=== PATIENT | male | born 1970 | race Caucasian/White ===

== ENCOUNTER 2024-06-01 18:53 | Emergency (ER) | payer BC, SELFPAY ==
--- NOTE | ~2024-06-01 | XR_ITS ---
XR hand LT min 3V Ordering provider: Finesse Dent APRN History: . left thumb pain x2 days, no injury . Comparison: None. FINDINGS: BONES: No acute fracture or dislocation. JOINT SPACES: Well maintained. SOFT TISSUES: Unremarkable. IMPRESSION: No acute osseous abnormality left hand. Reviewed, dictated and finalized at location A.
--- OUTSIDE RECORDS SUMMARY | 2024-06-01 19:00 | XMS_ITS | Clinical Summary ---
Author Organization [facility] Address [address] [place] [address] Care Team Providers Care Hand Compositor Name Role Phone Jonas Peacock MD Primary Care Provider [phone] Ashwini Whitaker [facility]- Unavailable [phone] Medications ADVAIR DISKUS 250-50 MCG/DOSE inhaler 01/30/2021 Active montelukast 10 MG tablet 05/16/2021 Active omeprazole 40 MG capsule 11/22/2020 Active Active Problems No known active problems Family History Medical History Relation Comments atrial fibrillation Father Heart Attack Maternal Grandfather Relation Status Comments Father Alive Maternal Grandfather Mother leukemia Social History Tobacco Use Types Packs/Day Years Used Date Smoking Tobacco: Never Smokeless Tobacco: Never Alcohol Use Standard Drinks/Week Comments Yes 0 (1 standard drink = 0.6 oz pur e alcohol) < 10 beers/week Sex and Gender Information Value Date Recorded Sex Assigned at Not on file Legal Sex Male 11:48 PM CDT Gender Identity Male 06/13/2021 8:44 AM CDT Sexual Orientation Not on file 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 Not 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 Not on file Last Filed Vital Signs Vital Sign Reading Time Taken Comments Blood Pressure 124/82 06/14/2021 8:06 AM CDT Pulse 84 06/14/2021 8:06 AM CDT Temperature - - Respiratory Rate 16 06/14/2021 8:06 AM CDT Oxygen Saturation - - Inhaled Oxygen Concentration - - Weight 93 kg (205 lb) 06/14/2021 8:06 AM CDT Height 177.8 cm (5' 10 ) 06/14/2021 8:06 AM CDT Body Mass Index 29.41 06/14/2021 8:06 AM CDT Plan of Treatment Health Maintenance Due Date Last Done Comments Colorectal Cancer Screening Colonoscopy (10 Years) 1969 Annual Physical 1972 Hepatitis C 08/28/1987 DTaP, Tdap and Td Vaccines ( 1 - Tdap) 1988 Pneumococcal Vaccine: 50+ Years (1 of 1 - PCV) 08/28/2019 Zoster Vaccines (1 of 2) 08/28/2019 COVID-19 Vaccine (2 - 2023-2 5 season) 2023 05/27/2020 Hepatitis B Vaccines Completed 10/27/1995, 05/08/1995, 04/04/1995 Meningococcal B Vaccine Aged Out No l onger eligible based on patient's age to complete this topic Meningococcal Vaccine Aged Out No john rosie eligible based on patient's age to complete this topic RSV Immunizations Under 20 Months Aged Out No longer eligible b ased on patient's age to complete this topic Insurance [facility], [facility] Care Teams Hand Compositor Relationship Specialty Start Date End Date Jonas Peacock MD [address] [place], [place] [id number] PCP - General FAMILY PRACTICE 05/28/21 Ashwini Whitaker, ANP- [address] [facility] [address] [place] [address] NURSE PRACTITIONER ADULT HEALTH 05/28/21
--- OUTSIDE RECORDS SUMMARY | 2024-06-01 19:00 | XMS_ITS | Clinical Summary ---
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 Gender Identity Not on file Sexual Orientation Not on file Plan of Treatment Health Maintenance Due Date Last Done Comments Hepatitis C Virus (HCV) Screening 1970 TdaP Immunization 1969 Colonoscopy 2014 Colorectal Cancer Screening 2014 Cologuard 08/28/2019 Immunochemical Fecal Occult Blood 08/28/2019 Pneumococcal Immunization (5 0+ years) (1 of 1 - PCV) 08/28/2019 Zoster Immunization (1 of 2) 08/28/2019 Influenza Immunization (#1) 2023 SARS-COV-2 Immunization (1 - 2023- season) 2023 Respiratory Syncytial Virus (RSV) Immunization (Adult) (1 - 1-dose 75+ series) 2044 Hepatitis B Immunization Completed 996, 05/08/1995, 04/04/1995 Meningococcal Immunization (ACWY) Aged Out No longer eligible b ased on patient's age to complete this topic Pneumococcal Immunization Combined Aged Out No longer eligible b ased on patient's age to complete this topic Rotavirus Immunization Aged Out No lo nger eligible based on patient's age to complete this topic
--- OUTSIDE RECORDS SUMMARY | 2024-06-01 19:00 | XMS_ITS | Encounter Summary ---
Author Organization [facility] Address [address] [place] [address] Care Team Providers Care Lap Regulator Name Role Phone Jonas Peacock MD Primary Care Provider [phone] Ashwini Whitaker-BC Unavailable Encounter Details Date Type Department Care Team ([facility] st Contact Info) Description 06/15/2021 [employer] Message Enc [facility]eld [address] [place] [address] Ashwini Whitaker ANP-BC [address] [facility] [address] [place] [address] Lab results Social History Tobacco Use Types Packs/Day Years [...] 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 No / Unsure 06/14/2021 8:57 AM CDT documented as of this encounter Plan of Treatment Not on file documented as of this encounter Visit Diagnoses Not on filedocumented in this encounter Care Teams Lap Regulator Relationship Specialty Start Date End Date Jonas Peacock MD [address] [place] [address] PCP - General FAMILY PRACTICE 05/28/21 Ashwini Whitaker, ANP- [address] [facility] [address] [place] [address] NURSE PRACTITIONER ADULT HEALTH 05/28/21 documented as of this encounter
--- OUTSIDE RECORDS SUMMARY | 2024-06-01 19:00 | XMS_ITS | Clinical Summary ---
Author Organization [facility] Address [address] [place] [address] Care Team Providers Care Dress Cap Maker Name Role Phone Jonas Peacock MD Primary Care Provider [phone] Allergies No known active allergies Medications fluticasone propion-salmete roL (ADVAIR DISKUS) 250-50 mcg/dose diskus inhalerIndicati ons:Maintenance Therapy for Asthma Inhale 1 puff 2 (two) times a day 05/21/19 20 Active cetirizine (ZyrTEC) 10 mg tablet Take 1 tablet (10 mg total) by mouth daily Active metroNIDAZOLE (METROGEL) 0.75 % gelIndications: Acne Rosacea Apply to face QHS 45 g 2 12/17/19 20 Active propranoloL (INDERAL) 40 mg tablet 07/20/19 21 Active traZODone (DESYREL) 50 mg tablet 08/20/19 21 Active omeprazole (PriLOSEC) 40 mg capsule Take 1 capsule (40 mg total) by mouth daily 90 capsule 3 12/09/19 24 025 Active hydrocortisone (ANUSOL-HC) 25 mg suppository Insert 1 suppository (25 mg total) into the rectum 2 (two) times a day as needed for hemorrhoids Take prior to procedure as directed 12 suppository 3 12/09/19 24 Active Active Problems Problem Noted Date Diagnosed Date Closed nondisplaced fracture of fifth right meta tarsal bone 09/19/2022 LEATHA (obstructive sleep apnea) 09/11/2020 Assessment & Plan (09/11/2020 1:36 PM CDT): The patient has been intolerant of CPAP in the past. His DME is [facility] in [facility]. I will send an order for the new P30i mask and new head gear to his supplier. He will follow up here in 3 months to assess his progress. I did offer a dental consult for consideration of an oral appliance. Hallux rigidus of right foot 07/23/2019 Overview (07/23/2019): Added automatically from request for surgery [id number] Rectal bleeding 03/30/2019 Overview (03/30/2019): Added automatically from request for surgery [id number] Gastroesophageal reflux disease 03/30/2019 Overview (03/30/2019): Added automatically from request for surgery [id number] Surgical History Surgery Date Site/Laterality Comments NASAL FRACTURE SURGERY 01/17/1991 - 02/16/1991 UPPER GASTROINTESTINAL ENDOSCOPY 02/17/2019 - 02/17/2020 COLONOSCOPY 02/17/2019 - 02/17/2020 Medical History Medical History Date Comments Asthma well controlled Sleep apnea can't tolerate c pap Motion sickness Allergic rhinitis GERD (gastroesophageal reflux disease) well controlled Social History Tobacco Use Types Packs/Day Years Used Date Smoking Tobacco: Never Smokeless Tobacco: Never Tobacco Cessation:Counseling Given: Not Answered Alcohol Use Standard Drinks/Week Comments Yes 6 (1 standard drink = 0.6 oz pur e alcohol) Sex and Gender Information Value Date Recorded Sex Assigned at Not on file Legal Sex Male 11:27 AM CDT Gender Identity Not on file Sexual Orientation Not on file Obstetrics History Last Filed Vital Signs Vital Sign Reading Time Taken Comments Blood Pressure 139/88 12/09/2023 10:28 AM CDT Pulse 92 12/09/2023 10:28 AM CDT Temperature 36.3 C (97.4 F) 12/09/2023 10:28 AM CDT Respiratory Rate 18 09/11/2020 12:59 PM CDT Oxygen Saturation 98% 09/11/2020 12:59 PM CDT Inhaled Oxygen Concentration - - Weight 99.3 kg (219 lb) 12/09/2023 10:28 AM CDT Height 177.8 cm (5' 10 ) 12/09/2023 10:28 AM CDT Body Mass Index 31.42 12/09/2023 10:28 AM CDT Plan of Treatment Health Maintenance Due Date Last Done Comments Depression Screening 1969 Hepatitis C Screening 1969 Prostate Cancer Screening-PSA 1969 DTaP/Tdap/Td Vaccine (1 - Tdap) 1980 Regular Well Visit/Exam 18-64 08/28/1987 Zoster Vaccine (1 of 2) 08/28/2019 Influenza Vaccine (Season Ended) 2024 Colon Cancer Screening-Colonoscopy 07/25/2029 07/26/2019 Hepatitis B Screening Completed 10/27/1995 , 05/08/1995, 04/04/1995 Colon Cancer Screening-CT Colonography Discontinued 07/26/2019 Colon Cancer Screening-DNA Stool Discontinued 07/26/2019 Colon Cancer Screening-FIT Discontinued 07/26/2019 Colon Cancer Screening-Sigmoidoscopy Discontinued 07/26/2019 Pneumococcal vaccine <65 Aged Out No longer eligible based on patient's age to complete this topic Procedures Procedure Name Priority Date/Time Associated Diagnosis Comments COLONOSCOPY 07/26/2019 8:31 AM CDT from Last 3 Months or Most Recently Relevant to Health Maintenance Results * COLONOSCOPY (07/26/2019 8:31 AM CDT) Anatomical Region Laterality Modality Other Narrative Procedure Note Soniya Post MD - 07/26/2019 8:31 AM CDT ENDOSCOPY LAB Patient Name: Carlos Maldonado Procedure Date: 07/26/2019 8:31 AM Date of : 1970 Admit Type: Outpatient Age: 48 Gender: Male Attending MD: Soniya Post M.D. Room: [facility] ENDOSCOPY ROOM 01 Note Status: Finalized Procedure: Colonoscopy Indications: Rectal bleeding Providers: Soniya Post M.D. Referring MD: Jonas Peacock MD Medicines: Monitored Anesthesia Care Complications: No immediate complications. Estimated blood loss:Minimal. Estimated Blood Loss: Estimated blood loss was minimal. Procedure: Pre-Anesthesia Assessment: - Immediately prior to administration of medications,the patient was re-assessed for adequacy to receivesedatives. The benefits, risks and alternatives of the procedureand sedation were discussed and informed consent wasobtained. All questions were answered. Please refer to the signed informed consent document in the medical record. Thescope was passed under direct vision. The [id number] introduced through the anus and advanced to theterminal ileum. The colonoscopy was performed withoutdifficulty. The patient tolerated the procedure well. The qualityof the bowel preparation was evaluated using the BBPS([place] Bowel Preparation Scale) with scores of: Right Colon =3, Transverse Colon = 3 and Left Colon = 3 (entire mucosa seen well with no residual staining, small fragments of stool or opaque liquid). The total BBPS score equals9. Findings: The digital rectal exam was normal. The terminal ileum appeared normal. One sessile polyp was found in the descending colon. The polyps was 3mm in size. The polyp was removed with cold biopsy forceps. Resectionand retrieval were complete. Two sessile polyps were found in the sigmoid colon. The polyps were 3mm in size. The polyps were removed with cold biopsy forceps. Resectionand retrieval were complete. Mild diverticulosis was noted in the sigmoid colon. Internal hemorrhoids were found during retroflexion. The hemorrhoids were small. Impression: - The examined portion of the ileum was normal. - One 3 mm polyp in the descending colon, removed witha cold snare. Resected and retrieved. - Two 3 mm polyps in the sigmoid colon. - Internal hemorrhoids. Recommendation: - Follow-up biopsy results. Please call the office ifyou do not receive results in 2 weeks. Timing of repeat colonoscopy to be determined after biopsy review. - High fiber diet - [facility] The signs and symptoms of potential delayedcomplications were discussed with the patient. Return to normal activities tomorrow. Written discharge instructionswere provided to the patient. Electronically by Dr Soniya Post Soniya Post M.D. 07/26/2019 8:56:18 AM Number of Addenda: 0 Note Initiated On: 07/26/2019 8:31 AM Soniya Post MD ENDOSCOPY PROCEDURES Final Result from Last 3 Months or Most Recently Relevant to Health Maintenance Insurance [facility] CHO[facility] PLUS [facility] H[facility]/PPO Address: [address] [address] [place] [address] [facility] H[facility]/PPO Address: [address] [address] [address] Advance Directives For more information, please contact: [phone] * Full Code (Latest Code Status on File) Date Activated Date Inactivated Comments 07/26/2019 7:18 AM 07/26/2019 1:40 PM Care Teams Dress Cap Maker Relationship Specialty Start Date End Date Jonas Peacock MD [address] [place] [address] PCP - General 07/10/17
--- OUTSIDE RECORDS SUMMARY | 2024-06-01 19:00 | XMS_ITS | Encounter Summary ---
Author Organization [facility] Address [address] [place] [address] Care Team Providers Care Clinical Geneticist Name Role Phone Jonas Peacock MD Primary Care Provider [phone] Ashwini Whitaker-BC Unavailable Encounter Details Date Type Department Care Team ([facility] st Contact Info) Description 06/15/2021 [employer] Message Enc [facility] [address] [place] [address] Ashwini Whitaker ANP-BC [address] [facility] [address] [place] [address] Stress Echo Instructions Social History Tobacco Use Types Packs/Day Years [...] Industry Job Start Date Job End Date [employer] business Not on file Not on file [...] on filedocumented in this encounter Care Teams Clinical Geneticist Relationship Specialty Start Date End Date Jonas Peacock MD [address] [place] [address] PCP - General FAMILY PRACTICE 05/28/21 Ashwini Whitaker, ANP- [address] [facility] [address] [place] [address] NURSE PRACTITIONER ADULT HEALTH 05/28/21 documented as of this encounter
--- OUTSIDE RECORDS SUMMARY | 2024-06-01 19:00 | XMS_ITS | Referral Summary ---
Author Organization [facility] Address [address] [place] [address] Care Team Providers Care Foundry Process Engineer Name Role Phone Jonas Peacock MD Primary Care Provider [phone] Allergies No known active allergies Medications fluticasone [...] the past. His DME is [facility] in [facility]. I will send an order for the new P30i mask and new head gear to his supplier. He will follow up here in 3 months to assess his progress. I did offer a dental consult for consideration of an oral appliance. Hallux rigidus of right foot 07/23/2019 Overview (07/23/2019): Added automatically from request for surgery [id number] Rectal bleeding 03/30/2019 Overview (03/30/2019): Added automatically from request for surgery [id number] Gastroesophageal reflux disease 03/30/2019 Overview (03/30/2019): Added automatically from request for surgery [id number] Social History Tobacco Use Types Packs/Day Years [...] on file Sexual Orientation Not on file Last Filed Vital Signs [...] 12/09/2023 10:28 AM CDT Plan of Treatment Not on file Procedures Procedure Name Priority Date/Time Associated Diagnosis [...] Male Attending MD: Soniya Post M.D. Room: [facility] ENDOSCOPY ROOM 01 Note Status: Finalized Procedure: Colonoscopy Indications: Rectal bleeding Providers: Soniya Psot M.D. Referring MD: Jonas Peacock MD Medicines: [...] Thescope was passed under direct vision. The [id number] introduced through the anus and advanced to theterminal ileum. The colonoscopy was performed withoutdifficulty. The patient tolerated the procedure well. The qualityof the bowel preparation was evaluated using the BBPS([place] Bowel Preparation Scale) with scores of: Right [...] - [facility]. The signs and symptoms of potential delayedcomplications [...] Most Recently Relevant to Health Maintenance Insurance [facility] CHOICE [facility] H[facility]/PPO Address: [address] [address] [place] [address] [facility] H[facility]/PPO Address: [address] [address] [place] [address] [employer] H[employer] [facility] Advance Directives For more information, please contact: [phone] * Full Code (Latest Code Status on File) Date Activated Date Inactivated Comments 07/26/2019 7:18 AM 07/26/2019 1:40 PM Care Teams Foundry Process Engineer Relationship Specialty Start Date End Date Jonas Peacock MD [address] [place] [address] PCP - General 07/10/17
[2024-06-01 19:06] VITALS: BP 156/99; PULSE 113; RESP 18; TEMP 36.3; O2SAT 98
--- NOTE | 2024-06-01 19:49 | ED.EXTPRO ---
HPI - Extremity Problem General Chief complaint: Extremity Problem,Nontraumatic Stated complaint: LT Thumb Pain Source: patient and RN notes reviewed Mode of arrival: ambulatory Limitations: no limitations History of Present Illness HPI Narrative: 53-year-old male presents Express Care complaining of left thumb pain for 2 day. Patient denies any specific injury to it. 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 He denies any swelling, numbness or tingling. When he touches his finger to his thumb he reports pain shoots into his left wrist. Patient states it hurts to make a complete fist. Patient has known significant past medical history. Related Data Home Medications ?Medication ?Instructions ?Recorded ?Confirmed ?Last Taken ?Type Advair HFA 06/01/24 Unknown History Allergies Allergy/AdvReac Type Severity Reaction Status Date / Time No Known Allergies Allergy Verified 06/01/24 19:06 Review of Systems Review of Systems: CONSTITUTIONAL: Denies fever, chills, or sweats. EYES: Denies visual changes, redness, or discharge. ENT: Denies rhinorrhea, congestion, sore throat, or otalgia. CARDIOVASCULAR: Denies chest pain, palpitations, or edema. RESPIRATORY: Denies cough or dyspnea. GASTROINTESTINAL: Denies abdominal pain, nausea, vomiting, or diarrhea. GENITOURINARY: Denies dysuria or hematuria. SKIN: Denies rash or itching. MUSCULOSKELETAL: Denies back pain, joint pain, or myalgia. Left thumb pain. NEUROLOGIC: Denies headache, numbness, or weakness. PSYCHIATRIC: Denies anxiety or depression. All other systems reviewed are negative, except as documented in HPI. PMFSH Comments At the time of my signature, I reviewed and agree with the nursing past medical, surgical, social, and family history. There is no relevant family history pertinent to the patient complaint. Exam Narrative: GENERAL: This is a well-nourished, well-developed adult, in no apparent distress. They are non ill-appearing, nontoxic appearing. HEAD: normocephalic, atraumatic. EYES: Sclera clear/white. Vision is grossly intact. EARS: External ears normal. Hearing grossly intact. NOSE: External nose normal. THROAT: Mucous membranes moist, NECK: Normal range of motion CARDIOVASCULAR: Regular rate and rhythm RESPIRATORY: Normal respiratory rate. No respiratory distress. Respiratory effort nonlabored SKIN: warm, Dry, intact with no suspicious lesions or rash, good texture and turgor. NEURO: awake, alert, and oriented to person, place and time. There were no obvious focal neurologic abnormalities. EXTREMITIES: Left thumb: There is no obvious swelling, injury, deformity, bruising, redness. Good range of motion. Patient is able to move his thumb against resistance at the DIP. Positive fleckenstein test and phalen's test. Negative tinel's sign. Patient can make a thumbs-up sign, there is pain making an okay sign and patient can make a stop sign. Patient is able to pronate and supinate. Radial pulses 2+ and palpable. Capillary refill is less than 2 seconds. Neurovascular status intact. There is tenderness to palpation to the left distal radial head. Course Course Emergency Course: Patient is aware of diagnosis, understands and agrees to treatment plan. Anticipatory guidance given. Patient agrees to follow-up as directed and is aware of reasons to seek care at the emergency department. Portions of this record may have been created with voice recognition software Level of Care: Express Care Visit Vital Signs Vital signs: Vital Signs Temperature 97.3 F L 06/01/24 19:06 Pulse Rate 113 H 06/01/24 19:06 Respiratory Rate 18 06/01/24 19:06 Blood Pressure 156/99 H 06/01/24 19:06 Pulse Oximetry 98 06/01/24 19:06 Oxygen Delivery Room Air 06/01/24 19:06 Temperature 97.3 F L 06/01/24 19:06 Pulse Rate 113 H 06/01/24 19:06 Respiratory Rate 18 06/01/24 19:06 Blood Pressure 156/99 H 06/01/24 19:06 Pulse Oximetry 98 06/01/24 19:06 Oxygen Delivery Room Air 06/01/24 19:06 Reviewed MDM - Extremity (Nontraumatic) MDM Narrative Medical decision making narrative: X-ray negative for any acute fractures or findings. Patient had a positive fleckenstein test and phalen's test. Symptoms could be consistent with De Quervain tenosynovitis or a carpal tunnel syndrome. However his Tinel's sign is negative. Recommend conservative therapy and follow-up with an orthopedist. Patient was offered an Hieu wrapping decline. He was advised to get a thumb spica splint for comfort. Discussed physical exam findings. Advised supportive measures and signs/symptoms to go to the ER. Pt is appropriate for outpt treatment and f/u. Differential Diagnosis Differential diagnosis: Likely other (Carpal tunnel syndrome, De Quervain tenosynovitis, thumb fracture, thumb sprain, arthritis) Imaging Data Radiologist's impression: FINDINGS: BONES: No acute fracture or dislocation. JOINT SPACES: Well maintained. SOFT TISSUES: Unremarkable. IMPRESSION: No acute osseous abnormality left hand. Critical Care Time Critical Care Time Critical Care Time: No Discharge Plan Discharge Clinical Impression: Injury of thumb, left Qualifiers: Encounter type: initial encounter Qualified Code(s): S69.92XA - Unspecified injury of left wrist, hand and finger(s), initial encounter Patient Disposition: Home Condition: Stable Instructions: Antibiotic Form, De Quervain Disease (ED) Additional Instructions: Your x-ray was negative for any fractures or acute findings. Your symptoms may be related to De Quervain tenosynovitis You may purchase a thumb spica splint [id number] for comfort or wear Hieu wrap Apply ice 15-20 minute intervals several times a day Motrin 600mg -800mg every 8 hours, alternate with Tylenol 1000mg every 8 hours as needed Follow up with your primary care provider as needed in 1-2 weeks Please follow-up with orthopedist if your pain persists. Patient Language: Congolese Prescriptions: No Action Advair HFA Follow-up/Referrals: Weston Robertson MD [Physician] - 1 Week Madonna,Jonas Levine MD [Primary Care Provider] - Time of Disposition: 19:38
== END 2024-06-01 19:45 | disposition home or self-care (01) ==
PROVIDERS: PCP Emergency Medicine
DX: S69.92XA Unspecified injury of left wrist, hand and finger(s), initial encounter (principal); X58.XXXA Exposure to other specified factors, initial encounter
CPT/HCPCS: 73130; 99203; G0463